=== PATIENT | female | born 1955 | race Caucasian/White ===

== ENCOUNTER 2020-05-10 13:02 | Outpatient (CLI) | payer MEDICARE, SELFPAY ==
--- NOTE | 2020-05-10 13:15 | MM_ITS ---
WS: [id number] BILATERAL DIGITAL SCREENING MAMMOGRAPHY WITH CAD CLINICAL INFORMATION: SCREENING HISTORY: Screening mammogram. No current complaints. COMPARISON: TECHNIQUE: Bilateral CC and MLO views. FINDINGS: The breasts are composed of heterogeneous fibroglandular density tissue, which can limit the detectio n of small underlying mass lesions. A few punctate calcifications are stable. 8 mm asymmetric density near the right areola best seen on the MLO view is nonspecific and more prominent compared to previo us. Recommend spot compression views and ultrasound for further evaluation. Left breast is unchanged. MM/[place] [id number] IMPRESSION: BI-RADS: 0-Incomplete: Need additional imaging evaluation FOLLOW UP: Need Additional Imaging RECOMMEND RIGHT BREAST DIAGNOSTIC MAMMOGRAPHY WITH SPOT COMPRESSION VIEWS AND U LTRASOUND OF THE 8 MM DENSITY RIGHT BREAST
--- NOTE | 2020-05-10 14:09 | XR_ITS ---
WS: [id number] DEXA (DUAL ENERGY X-RAY ABSORPTIOMETRY) Bone mineral density was performed using a [employer] machine. HISTORY: POST MENOPAUSAL COMPARISON: None available. Lumbar spine BMD (L1-L4): 1.036 g/cm2 T score: -1.2 Z score: 0.1 Total hip BMD: Left: 0.884 g/cm2. T score: -1.0 Z score: 0.0 Right: 0.901 g/cm2. T score: -0.8 Z score: 0.2 10 year probability of a major osteoporotic fracture is 18%. XR/XR DEXA axial skeleton* [id number] IMPRESSION: OSTEOPENIA based upon the WHO classification for females.
== END 2020-05-10 13:03 | disposition home or self-care (01) ==
LOC: RADSHAW 13:08
PROVIDERS: PCP Family Medicine; Visit Provider Family Medicine
DX: Z12.31 Encounter for screening mammogram for malignant neoplasm of breast (principal); Z78.0 Asymptomatic menopausal state; R92.1 Mammographic calcification found on diagnostic imaging of breast; M85.89 Other specified disorders of bone density and structure, multiple sites
CPT/HCPCS: 77067; 77080

== ENCOUNTER 2020-06-08 08:20 | Outpatient (CLI) | payer MEDICARE, SELFPAY ==
--- NOTE | 2020-06-08 08:24 | US_ITS ---
WS: [id number] RIGHT DIGITAL MAMMOGRAPHY WITH CAD CLINICAL INFORMATION: ABNORMAL MAMMOGRAM COMPARISON: 05/10/2020 TECHNIQUE: 3 views of the right breast were obtained. FINDINGS: The right breast is composed of heterogeneous fibroglandular density tissue, which can limit the dete ction of small underlying mass lesions. 10 mm asymmetric density near the right areola is unchanged i n appearance. Ultrasound is pending ULTRASOUND BREAST RIGHT TECHNIQUE: Ultrasound right breast focused area of concern. CLINICAL INFORMATION: ABNORMAL MAMMOGRAM COMPARISON: May 10, 2020 FINDINGS: Well-circumscribed hypoechoic solid lesion at 11:00 position measuring approximately 8.4 x 4.5 x 6.6 mm. This lesion is taller than wide. This lesion is suspicious and and may be intraductal. Recommend further evaluation with ultrasound-guided biopsy. US/US breast RT limited* [id number] IMPRESSION: BI-RADS: 4-Suspicious Finding-Biopsy Should Be Considered FOLLOW UP: US Guided Biopsy Recommended
--- NOTE | 2020-06-13 12:02 | PC.NURSE ---
Called patient to discuss biopsy date and preop instructions. Pt clarified that she is not on blood thinning meds. Pt is aware of all preop instructions and all questions answered. Pt has no other needs at this time. Pt to follow up with Dr. Luis after biopsy on 07/02/20 at 1330. Reuben THRASHER
== END 2020-06-08 08:21 | disposition home or self-care (01) ==
LOC: RADSHAW 08:22
PROVIDERS: PCP Family Medicine; Visit Provider Family Medicine
DX: R92.8 Other abnormal and inconclusive findings on diagnostic imaging of breast (principal); N64.89 Other specified disorders of breast
CPT/HCPCS: 76642; 77065

== ENCOUNTER 2020-12-04 08:32 | Outpatient (CLI) | payer MEDICARE, SELFPAY ==
--- NOTE | 2020-12-04 08:47 | MM_ITS ---
WS: [id number] ADDITIONAL VIEWS RIGHT MAMMOGRAM RIGHT BREAST ULTRASOUND HISTORY: ABNORMAL MAMMOGRAM RT BREAST COMPARISON: 06/08/2020, 05/10/2020 and 06/06/2009 RIGHT MAMMOGRAM: Spot compression views and true ML. Asymmetry in the central RIGHT breast becomes less conspicuous with additional views. There is still mild asymmetry but less conspicuous as compared to the prior studies. RIGHT BREAST ULTRASOUND 2-D and color Doppler imaging submitted. No suspicious masses or calcifications or shadowing. There is an area of focal dense fibroglandular t issue at 11:00, 1 cm from the nipple that is very similar in appearance to 06/08/2020 evaluation. No i ncrease in size. MM/[place] [id number] IMPRESSION: BI-RADS: 3-Probably Benign FOLLOW UP: 6 Month Follow-up Patient to return in May 2021 for annual mammogram. Diagnostic imaging of t he RIGHT breast asymmetry should be performed at that time.
== END 2020-12-04 08:33 | disposition home or self-care (01) ==
LOC: RADSHAW 08:37
PROVIDERS: PCP Family Medicine; Visit Provider Family Medicine
DX: R92.8 Other abnormal and inconclusive findings on diagnostic imaging of breast (principal); N64.89 Other specified disorders of breast
CPT/HCPCS: 76642; 77065

== ENCOUNTER 2021-06-10 08:49 | Outpatient (CLI) | payer MEDICARE, SELFPAY ==
--- NOTE | 2021-06-10 08:57 | MM_ITS ---
WS: [id number] BILATERAL DIGITAL DIAGNOSTIC MAMMOGRAM MAMMOGRAPHY WITH CAD CLINICAL INFORMATION: ABNORMAL MAMMOGRAM HISTORY: Six-month follow-up COMPARISON: Multiple prior comparisons dating back to June 2020 TECHNIQUE: Bilateral CC, MLO, and ML views. FINDINGS: Scattered fibroglandular densities bilaterally. Previously described 8 mm asymmetric density near the right areola is more difficult to visualize today on the spot compression views. Slight nodular mile st tissue about the areola is similar in appearance. Right breast is otherwise unchanged in appearanc e. Ultrasound is pending. Left breast is unchanged in appearance. Punctate calcification left breast. ULTRASOUND BREAST RIGHT TECHNIQUE: Ultrasound right breast focused area of concern. CLINICAL INFORMATION: ABNORMAL MAMMOGRAM COMPARISON: December 04, 2020, June 08, 2020 and June 06, 2020 FINDINGS: Ultrasound right breast at the 11:00 position 1 cm from the nipple. There is a hypoechoic taller than wide lesion measuring 7.6 x 3.7 x 4.6 mm. Today this is visible in 2 different planes and appears mo re distinct in appearance with some shadowing. Considering persistence, recommend further evaluation with ultrasound-guided biopsy for definitive diagnosis. MM/[place] [id number] IMPRESSION: BI-RADS: 4-Suspicious Finding-Biopsy Should Be Considered FOLLOW UP: US Guided Biopsy Recommended RECOMMEND ULTRASOUND-GUIDED BIOPSY OF RIGHT BREAST LESION.
== END 2021-06-10 08:50 | disposition home or self-care (01) ==
LOC: RADSHAW 08:54
PROVIDERS: PCP Family Medicine; Visit Provider Family Medicine
DX: R92.8 Other abnormal and inconclusive findings on diagnostic imaging of breast (principal); N63.11 Unspecified lump in the right breast, upper outer quadrant
CPT/HCPCS: 76642; 77066

== ENCOUNTER 2021-06-21 07:41 | Outpatient (CLI) | payer MEDICARE, SELFPAY ==
--- NOTE | 2021-06-21 08:00 | US_ITS ---
WS: [id number] ULTRASOUND-GUIDED RIGHT BREAST BIOPSY HISTORY: R BREAST LESION COMPARISON: 06/10/2021, 12/05/2019 Procedure, risks and complications are explained to the patient. Medications are reviewed. Consent is obtained. The mass in the RIGHT breast is localized with ultrasound. Mass is localized at 11:00, 1 cm from the nipple. Skin is cleansed with ChloraPrep and anesthetized with 1% buffered lidocaine. Small dermatome is made. Under sterile conditions mass is biopsied with a 14-gauge Achieve needle. Multiple core bio psies are performed. Material placed in formalin and sent to pathology for review. No complications e ncountered. Breast tissue marker (Bard ultrasound enhanced ribbon): Single. Patient left the radiology suite with no complications. Patient is instructed to return to [facility] or [facility] with any concerns. US/[place] [id number] IMPRESSION: 1. Uncomplicated core needle biopsy RIGHT breast mass at 11:00. PATHOLOGY: Benign breast tissue with stromal sclerosis and columnar cell hyperp lasia. No malignancy. Correlates with imaging findings. RECOMMENDATION: Diagnostic RIGHT mammogram 6 months.
[2021-06-21 08:35] LABS: INR 0.97 (0.8-1.2)
== END 2021-06-21 07:42 | disposition home or self-care (01) ==
PROVIDERS: PCP Family Medicine; Visit Provider Family Medicine
DX: N64.89 Other specified disorders of breast (principal); N62 Hypertrophy of breast
CPT/HCPCS: 19083; 36415; 85610; 88305

== ENCOUNTER 2023-03-18 11:39 | Outpatient (CLI) | payer MEDICARE, SELFPAY ==
--- NOTE | 2023-03-18 12:05 | MM_ITS ---
WS: [id number] Bilateral screening 3D tomosynthesis digital mammogram, 03/18/2023 Clinical Data: SCREENING Comparison: 06/10/2021, 12/04/2020, 06/08/2020, 06/10/2020, 06/06/2009, 04/06/2008. Findings: The breast parenchymal pattern shows fibroglandular tissue. No spiculated masses or clustered calcifi cations are seen. There are no secondary signs of carcinoma. Impression: 1. Negative bilateral mammogram unchanged. 2. Recommend annual screening mammograms. BI RADS: 1-Negative MM/[place] [id number] FOLLOW UP: 1 Year Follow-up The CAD color checker roving or yarn was used.
== END 2023-03-18 11:40 | disposition home or self-care (01) ==
LOC: RAD 11:54 → MOBLMAM 12:04
PROVIDERS: PCP Family Medicine; Visit Provider Nurse Practitioner Family
DX: Z12.31 Encounter for screening mammogram for malignant neoplasm of breast (principal)
CPT/HCPCS: 77063; 77067

== ENCOUNTER 2023-03-30 12:45 | Outpatient (CLI) | payer MEDICARE, SELFPAY ==
--- NOTE | 2023-03-30 12:52 | XR_ITS ---
WS: [id number] SCREENING DEXA SCAN [place] CLINICAL INFORMATION: POSTMENOPAUSAL COMPARISON: 05/10/2020 FINDINGS: The L1-L4 bone mineral density measures 1.076 g/cm2. This corresponds to a T score score of -0.9 and Z score of 0.7. Left femoral neck bone mineral density measures 0.850 g/cm2. This corresponds to a T score of -1.3 an d Z score of 0.1. Right femoral neck bone mineral density measures 0.848 g/cm2. This corresponds to a T score -1.3of an d Z score of 0.0. Mean femoral neck bone mineral density measures 0.849 g/cm2. This corresponds to a T score of -1.3 an d Z score of 0.1. IMPRESSION: Normal bone mineralization lumbar spine. Osteopenia femoral necks. Patient's FRAX calculated 10 year probability for major osteoporotic fracture is 19.8% and osteoporot ic hip fracture is 4.0%. Bone mineral density in the lumbar spine has increased 3.9% since 2019. Bone mineral density in the femoral necks decreased -4.8% since 2019
== END 2023-03-30 12:46 | disposition home or self-care (01) ==
PROVIDERS: PCP Family Medicine; Visit Provider Nurse Practitioner Family
DX: Z78.0 Asymptomatic menopausal state (principal)
CPT/HCPCS: 77080

== ENCOUNTER 2025-04-17 14:48 | Outpatient (CLI) | payer MEDICARE, SELFPAY ==
--- NOTE | 2025-04-17 14:55 | MM_ITS ---
WS: [id number] BILATERAL 3D TOMOSYNTHESIS DIGITAL SCREENING MAMMOGRAPHY WITH CAD CLINICAL INFORMATION: SCREENING HISTORY: Screening mammogram. No current complaints. COMPARISON: 2022 TECHNIQUE: Bilateral CC and MLO views. FINDINGS: The breasts are composed of heterogeneous fibroglandular density tissue, which can limit the detection of small underlying mass lesions. No suspicious mass, asymmetry, calcifications, or architectural distortion. No evidence of malignancy. Biopsy clip RIGHT breast MM/MM scr BI tomosynthesis [id number] IMPRESSION: DENSITY: The breasts are heterogeneously dense, which may obscure small masses. BI-RADS: 2 - Benign FOLLOW UP: 1 Year Follow-up Recommend return to annual screening mammography.
== END 2025-04-17 14:49 | disposition home or self-care (01) ==
PROVIDERS: PCP Family Medicine; Visit Provider Family Medicine
DX: Z12.31 Encounter for screening mammogram for malignant neoplasm of breast (principal)
CPT/HCPCS: 77063; 77067